=== PATIENT | female | born 1950 | race Asian ===

== ENCOUNTER 2020-06-26 09:33 | Emergency (ER) | payer OTHER ==
[2020-06-26 09:58] VITALS: BP 136/75; PULSE 71; TEMP 98.2; BMI 28.3
[2020-06-26] MEDS ORDERED: FAMOTIDINE 20 MG TABLET PO ONE (11:04)
[2020-06-26] MEDS ORDERED: methylPREDNISolone NA SUCC 125 MG/2 ML VIAL IVPUSH ONE (11:04)
[2020-06-26] MEDS ORDERED: methylPREDNISolone NA SUCC 125 MG/2 ML VIAL ONE (11:09)
[2020-06-26] MEDS ORDERED: FAMOTIDINE 20 MG/50 ML IVPB 20 MG/50 ML MG IVPB ONE (11:09)
[2020-06-26] MEDS ORDERED: diphenhydrAMINE HCL 50 MG CAPSULE PO ONE (11:34)
[2020-06-26] MEDS ORDERED: predniSONE 20 MG TABLET (UD) PO ONE (11:34)
[2020-06-26] MEDS ORDERED: predniSONE 20 MG TABLET (UD) ONE (11:41)
[2020-06-26] MEDS ORDERED: FAMOTIDINE 20 MG TABLET ONE (11:42)
[2020-06-26] MEDS ORDERED: diphenhydrAMINE HCL 25 MG CAPSULE (FP) PO ONE (11:42)
== END 2020-06-26 17:39 | disposition home or self-care (01) ==
LOC: JER 09:33
PROC: 3E033NZ Introduction of Analgesics, Hypnotics, Sedatives into Peripheral Vein, Percutaneous Approach (ICD-10-PCS; principal; 2020-06-26)
PROC: 3E033GC Introduction of Other Therapeutic Substance into Peripheral Vein, Percutaneous Approach (ICD-10-PCS; 2020-06-26)
DX: T46.4X5A Adverse effect of angiotensin-converting-enzyme inhibitors, initial encounter (principal); R22.33 Localized swelling, mass and lump, upper limb, bilateral; T78.3XXA Angioneurotic edema, initial encounter
CPT/HCPCS: 99285-25